=== PATIENT | male | born 1995 | race Caucasian/White ===

== ENCOUNTER 2019-04-27 13:50 | Emergency (ER) | payer SELFPAY ==
[~2019-04-27] VITALS: Ht 188 cm; Wt 103.2 kg
[2019-04-27 14:08] VITALS: BP 129/59
[2019-04-27] MEDS ORDERED: LIDOCAINE-MPF 1%, 5ML ONE (14:22)
[2019-04-27] MEDS ORDERED: LIDOCAINE-MPF 1%, 5ML INFIL ONE (14:30)
--- NOTE | 2019-04-27 15:10 | NUR ---
I&D COMPLETED BY GABBY GRAY, WOUND DRESSED BY GABBY GRAY. PT A&O, RESPS EVEN AND UNLABORED, JOSHUA. PT AND MOTHER GIVEN DC INSTRUCTIONS AND SCRIPT. EDCUATED REGARDING DC RX FOR BACRTIM, NAPROXEN AND KEFLEX. PT AMB TO DC DESK WITH STEADY GAIT ACCOMPANIED BY MOTHER. NADN AT DC.
== END 2019-04-27 15:13 | disposition home or self-care (01) ==
LOC: ED 15:00
DX: L72.3 Sebaceous cyst (principal)
CPT/HCPCS: 10060

== ENCOUNTER 2019-04-29 16:42 | Emergency (ER) | payer SELFPAY ==
[~2019-04-29] VITALS: Ht 190.5 cm; Wt 101.2 kg
[2019-04-29 16:48] VITALS: BP 128/57
--- NOTE | 2019-04-29 17:02 | NUR ---
PT HERE FOR PACKING REMOVAL, STATED HE WAS TOLD TO COME TODAY TO HAVE IT REMOVED. PACKING ON CYST TO POSTERIOR HEAD.
--- NOTE | 2019-04-29 17:45 | NUR ---
Patient/Caregiver given discharge instructions and they have confirmed that they understand the instructions. Patient ambulatory with steady gait.
== END 2019-04-29 17:46 | disposition home or self-care (01) ==
LOC: ED 17:40
DX: Z48.01 Encounter for change or removal of surgical wound dressing (principal)
CPT/HCPCS: 99282